=== PATIENT | male | born 1935 | race African-American/Black ===

== ENCOUNTER 2017-03-24 15:26 | Inpatient (IN) | payer OTHER ==
[~2017-03-24] VITALS: Ht 167.6 cm; Wt 68.0 kg
[2017-03-24] MEDS ORDERED: SODIUM CHLORIDE 0.9% 1,000 ML IV ONE (17:32)
[2017-03-24 18:08] LABS: BASOPHILS % 0.6 % (0.0-2.0); EOSINOPHILS % 1.2 % (0.0-5.0); HEMATOCRIT. 37.9 % (42.0-52.0); HEMOGLOBIN. 12.5 g/dL (14.0-18.0); LYMPHOCYTES % 20.7 % (20.0-50.0); MEAN CORPUSCULAR HEMOGLOBIN 27.6 pg (28.0-32.0); MEAN CORPUSCULAR VOLUME 83.6 fL (80.0-94.0); MEAN PLATELET VOLUME 6.6 fl (7.4-10.4); MONOCYTES % 6.6 % (2.0-8.0); NEUTROPHILS % 70.9 % (40.0-76.0); PLATELET 201 x1000/uL (130-400); RED BLOOD CELL COUNT 4.54 mill/uL (4.7-6.1); RED CELL DISTRIBUTION WIDTH 14.2 % (11.6-14.6)
[2017-03-24 18:17] LABS: CARBON DIOXIDE 24 mEq/L (21-32); CHLORIDE 108 mEq/L (98-107)
[2017-03-24 18:24] LABS: CREATINE KINASE MB FRACTION 1.2 ng/mL (0.5-3.6); TROPONIN I < 0.02 ng/mL (0.00-0.04)
[2017-03-24] MEDS ORDERED: ASPIRIN 325MG EC TABLET PO ONE (19:00)
[2017-03-24] MEDS ORDERED: LORAZEPAM 2MG/ML CPJ IV PRN (19:30)
[2017-03-24] MEDS ORDERED: ACETAMINOPHEN 325MG TABLET PO PRN (19:30)
[2017-03-24] MEDS ORDERED: DIPHENHYDRAMINE 50MG/ML VIAL IV PRN (19:30)
[2017-03-24] MEDS ORDERED: MAGNESIUM/ALUMINUM HYDROXIDE/SIMETHICONE 30ML UDC PO PRN (19:30)
[2017-03-24] MEDS ORDERED: MORPHINE SULFATE 2 MG/ML CPJ (NOT FOR IM USE) IV PRN (19:30)
[2017-03-24] MEDS ORDERED: CLONIDINE 0.1MG TABLET PO PRN (19:30)
[2017-03-24] MEDS ORDERED: DOCUSATE SODIUM 100MG CAPSULE PO PRN (19:30)
[2017-03-24] MEDS ORDERED: ONDANSETRON HCL 4MG/2ML VIAL IV PRN (19:30)
[2017-03-24] MEDS ORDERED: NA PHOS,M-B/NA PHOS,DI-BA ENEMA 118ML PR PRN (19:30)
[2017-03-24] MEDS ORDERED: TRAMADOL 50MG TABLET PO PRN (19:30)
[2017-03-24] MEDS ORDERED: GUAIFENESIN 200MG/10ML SUGAR FREE UDC PO PRN (19:30)
[2017-03-24] MEDS ORDERED: IPRATROPIUM/ALBUTEROL 0.5-3(2.5)MG/3ML NEB INH PRN (19:30)
[2017-03-24] MEDS ORDERED: DEXTROSE 50% WATER 50ML SYRINGE IV PRN (19:30)
[2017-03-24 20:30] LABS: FOLIC ACID (FOLATE) SERUM 19.6 ng/mL (>5.38)
[2017-03-24 22:47] VITALS: BP 143/75
[2017-03-24 22:55] LABS: CREATINE KINASE 95 IU/L (39-308); TROPONIN I < 0.02 ng/mL (0.00-0.04)
[2017-03-24] MEDS: BLOOD SUGAR DIAGNOSTIC STRIP TEST SCH (23:30)
[2017-03-24] MEDS: INSULIN LISPRO 100 UNITS/ML SUBCUT SCH (23:31)
[2017-03-24] MEDS ORDERED: ZOLPIDEM TARTRATE 5MG TABLET PO PRN (23:32)
[2017-03-24] MEDS ORDERED: ENOXAPARIN 40MG/0.4ML SYR SUBCUT SCH (23:34)
[2017-03-24] MEDS: FAMOTIDINE 20MG/2ML VIAL IV SCH (23:49)
[2017-03-25] MEDS ORDERED: ATOR40TA70 PO (01:28)
[2017-03-25] MEDS ORDERED: TERA2CAP4 PO (01:29)
[2017-03-25] MEDS ORDERED: BICA50TA2 PO (01:30)
[2017-03-25 04:00] VITALS: BP 102/52
[2017-03-25 04:22] LABS: *AMPHETAMINES SCREEN URINE NEGATIVE (NEGATIVE); *BARBITURATES SCREEN URINE NEGATIVE (NEGATIVE); *BENZODIAZEPINES SCREEN URINE NEGATIVE (NEGATIVE); *COCAINE SCREEN URINE NEGATIVE (NEGATIVE); CANNABINOID URINE SCREEN NEGATIVE (NEGATIVE); METHADONE URINE SCREEN NEGATIVE (NEGATIVE); OPIATES URINE SCREEN NEGATIVE (NEGATIVE); PHENCYCLIDINE URINE SCREEN NEGATIVE (NEGATIVE)
[2017-03-25] MEDS: BLOOD SUGAR DIAGNOSTIC STRIP TEST SCH ×3 (06:24→17:09)
[2017-03-25] MEDS: INSULIN LISPRO 100 UNITS/ML SUBCUT SCH ×3 (06:25→17:10)
[2017-03-25 08:00] VITALS: BP 120/68
[2017-03-25 08:05] LABS: CREATINE KINASE 93 IU/L (39-308); TROPONIN I < 0.02 ng/mL (0.00-0.04)
[2017-03-25] MEDS: FAMOTIDINE 20MG/2ML VIAL IV SCH (09:01)
[2017-03-25 12:00] VITALS: BP 108/54
[2017-03-25 16:00] VITALS: BP 119/68
[2017-03-25 20:00] VITALS: BP 106/52
[2017-03-25 20:23] VITALS: BP 106/52
== END 2017-03-25 22:10 | disposition short-term general hospital (02) | DRG 312 ==
LOC: ER 16:10 → 8WST 19:08 → EDBEDREQTM 19:44 → EDBEDREQ 19:44 → SUPCPDRO 20:58 → ENRESERV 20:59
PROVIDERS: ADMIT Internal Medicine; ATTEND Internal Medicine
DX: R55 Syncope and collapse (principal); E11.9 Type 2 diabetes mellitus without complications; E78.00 Pure hypercholesterolemia, unspecified; I10 Essential (primary) hypertension; Z91.11 Patient's noncompliance with dietary regimen; Z91.14 Patient's other noncompliance with medication regimen
CPT/HCPCS: 36415; 70450; 71010; 80053; 80061; 80305; 82550; 82553; 82607; 82746; 82962; 83036; 83540; 83550; 84439; 84443; 84484; 85025; 87086; 93005; 93970; 96360; 96361; 99285; J1650; J3490; J7030

== ENCOUNTER 2018-04-09 11:04 | Inpatient (IN) | payer OTHER ==
[~2018-04-09] VITALS: Ht 175.3 cm; Wt 68.9 kg
[2018-04-09 13:09] LABS: BASOPHILS % 0.9 % (0.0-2.0); EOSINOPHILS % 2.8 % (0.0-5.0); HEMATOCRIT. 38.4 % (42.0-52.0); HEMOGLOBIN. 12.6 g/dL (14.0-18.0); LYMPHOCYTES % 23.1 % (20.0-50.0); MEAN CORPUSCULAR HEMOGLOBIN 27.6 pg (28.0-32.0); MEAN CORPUSCULAR VOLUME 83.7 fL (80.0-94.0); MEAN PLATELET VOLUME 7.1 fl (7.4-10.4); MONOCYTES % 6.2 % (2.0-8.0); PLATELET 248 x1000/uL (130-400); RED BLOOD CELL COUNT 4.59 mill/uL (4.7-6.1); RED CELL DISTRIBUTION WIDTH 14.8 % (11.6-14.6)
[2018-04-09 13:19] LABS: CHLORIDE 107 mEq/L (98-107)
[2018-04-09] MEDS ORDERED: HYDROMORPHONE HCL/PF 2MG/ML CPJ IV PRN (15:15)
[2018-04-09] MEDS ORDERED: ONDANSETRON HCL 4MG/2ML INJ IV PRN (15:15)
[2018-04-09] MEDS ORDERED: ACETAMINOPHEN 650MG/20.3ML UDC GT PRN (15:15)
[2018-04-09] MEDS: ENOXAPARIN 40MG/0.4ML SYR SUBCUT SCH (17:20)
[2018-04-09] MEDS: DEXT 5%/0.45% NACL 1000ML 1,000 ML IV SCH (18:50)
[2018-04-09 20:00] VITALS: BP 135/71
[2018-04-10] VITALS (8 sets, daily range): BP systolic 122–169; BP diastolic 57–86
[2018-04-10 00:05] LABS: CREATINE KINASE MB FRACTION 1.2 ng/mL (0.5-3.6)
[2018-04-10 05:43] LABS: *AMPHETAMINES SCREEN URINE NEGATIVE (NEGATIVE); *BARBITURATES SCREEN URINE NEGATIVE (NEGATIVE); *BENZODIAZEPINES SCREEN URINE NEGATIVE (NEGATIVE); *COCAINE SCREEN URINE NEGATIVE (NEGATIVE); CANNABINOID URINE SCREEN NEGATIVE (NEGATIVE); METHADONE URINE SCREEN NEGATIVE (NEGATIVE); OPIATES URINE SCREEN NEGATIVE (NEGATIVE); PHENCYCLIDINE URINE SCREEN NEGATIVE (NEGATIVE)
[2018-04-10 06:53] LABS: BASOPHILS % 0.7 % (0.0-2.0); EOSINOPHILS % 3.7 % (0.0-5.0); HEMATOCRIT. 36.3 % (42.0-52.0); HEMOGLOBIN. 12.2 g/dL (14.0-18.0); MEAN CORPUSCULAR HEMOGLOBIN 27.7 pg (28.0-32.0); MEAN CORPUSCULAR VOLUME 82.8 fL (80.0-94.0); MEAN PLATELET VOLUME 7.1 fl (7.4-10.4); MONOCYTES % 9.2 % (2.0-8.0); NEUTROPHILS % 47.4 % (40.0-76.0); PLATELET 267 x1000/uL (130-400); RED BLOOD CELL COUNT 4.39 mill/uL (4.7-6.1); RED CELL DISTRIBUTION WIDTH 14.8 % (11.6-14.6)
[2018-04-10 07:23] LABS: CHLORIDE 107 mEq/L (98-107)
[2018-04-10 07:34] LABS: CREATINE KINASE 89 IU/L (39-308); CREATINE KINASE MB FRACTION 1.5 ng/mL (0.5-3.6)
[2018-04-10] MEDS: AMLODIPINE 5MG TABLET PO SCH ×2 (16:34→20:40)
[2018-04-10] MEDS: ENOXAPARIN 40MG/0.4ML SYR SUBCUT SCH (17:30)
[2018-04-11] VITALS: BP 152/81
[2018-04-11 04:00] VITALS: BP 131/70
[2018-04-11 08:11] VITALS: BP 130/55
[2018-04-11] MEDS: AMLODIPINE 5MG TABLET PO SCH ×2 (08:59→21:20)
[2018-04-11 12:00] VITALS: BP_SYST 106; BP_SYST 107; BP_SYST 99; BP_DIAS 53; BP_DIAS 55; BP_DIAS 57
[2018-04-11 16:00] VITALS: BP 112/50
[2018-04-11] MEDS: ENOXAPARIN 40MG/0.4ML SYR SUBCUT SCH (17:42)
[2018-04-11 20:00] VITALS: BP 121/53
[2018-04-12] VITALS (8 sets, daily range): BP systolic 109–163; BP diastolic 48–78
[2018-04-12] MEDS: DEXT 5%/0.45% NACL 1000ML 1,000 ML IV SCH (04:00)
[2018-04-12 06:32] LABS: BASOPHILS % 1.1 % (0.0-2.0); EOSINOPHILS % 5.8 % (0.0-5.0); HEMATOCRIT. 38.3 % (42.0-52.0); HEMOGLOBIN. 12.9 g/dL (14.0-18.0); LYMPHOCYTES % 42.2 % (20.0-50.0); MEAN CORPUSCULAR HEMOGLOBIN 27.6 pg (28.0-32.0); MEAN CORPUSCULAR VOLUME 81.9 fL (80.0-94.0); MONOCYTES % 9.5 % (2.0-8.0); NEUTROPHILS % 41.4 % (40.0-76.0); PLATELET 265 x1000/uL (130-400); RED BLOOD CELL COUNT 4.67 mill/uL (4.7-6.1); RED CELL DISTRIBUTION WIDTH 14.4 % (11.6-14.6)
[2018-04-12 06:42] LABS: CHLORIDE 107 mEq/L (98-107)
[2018-04-12 06:45] LABS: PHOSPHORUS 3.4 mg/dL (2.5-4.9)
[2018-04-12 07:16] LABS: CLARITY URINE CLEAR (CLEAR); COLOR URINE YELLOW (YELLOW); KETONES URINE NEGATIVE (NEGATIVE); LEUKOCYTE ESTERASE URINE NEGATIVE (NEGATIVE); NITRITE URINE NEGATIVE (NEGATIVE); OCCULT BLOOD URINE NEGATIVE (NEGATIVE); PROTEIN URINE NEGATIVE (NEGATIVE); SPECIFIC GRAVITY URINE 1.013 (1.005-1.030); UROBILINOGEN URINE 0.2 E.U./dL (0.2-1.0)
[2018-04-12] MEDS: AMLODIPINE 5MG TABLET PO SCH ×2 (08:33→21:00)
[2018-04-12] MEDS: ENOXAPARIN 40MG/0.4ML SYR SUBCUT SCH (18:06)
[2018-04-13] VITALS: BP 126/69
[2018-04-13 04:00] VITALS: BP_SYST 100; BP_SYST 114; BP_DIAS 62; BP_DIAS 65
[2018-04-13 08:00] VITALS: BP 134/64
[2018-04-13] MEDS: AMLODIPINE 5MG TABLET PO SCH (10:09)
[2018-04-13 12:00] VITALS: BP 121/58
[2018-04-13 14:19] VITALS: BP 121/58
== END 2018-04-13 15:23 | disposition home or self-care (01) | DRG 74 ==
LOC: ER 12:50 → 5WST 13:38 → EDBEDREQTM 13:46 → EDBEDREQ 13:46 → CANRESERV 13:51 → ENRESERV 13:51
PROVIDERS: ADMIT Internal Medicine Nephrology; ATTEND Internal Medicine Nephrology
DX: G90.8 Other disorders of autonomic nervous system (principal); E44.1 Mild protein-calorie malnutrition; C79.51 Secondary malignant neoplasm of bone; I10 Essential (primary) hypertension; E78.5 Hyperlipidemia, unspecified; E11.43 Type 2 diabetes mellitus with diabetic autonomic (poly)neuropathy; D64.9 Anemia, unspecified; R00.1 Bradycardia, unspecified; C61 Malignant neoplasm of prostate; K21.9 Gastro-esophageal reflux disease without esophagitis; E03.9 Hypothyroidism, unspecified; E78.00 Pure hypercholesterolemia, unspecified; F03.90 Unspecified dementia, unspecified severity, without behavioral disturbance, psychotic disturbance, mood disturbance, and anxiety; Z85.46 Personal history of malignant neoplasm of prostate; Z86.73 Personal history of transient ischemic attack (TIA), and cerebral infarction without residual deficits; Z91.19 Patient's noncompliance with other medical treatment and regimen; Z68.22 Body mass index [BMI] 22.0-22.9, adult
CPT/HCPCS: 36415; 70551; 71045; 80048; 80061; 80305; 82550; 82553; 83735; 83880; 84100; 84443; 84484; 93005; 93306; 93880; 97162; 99285; A6261; J1650